=== PATIENT | male | born 1990 | race Two or more races ===

== ENCOUNTER 2024-06-22 07:57 | Emergency (ER) | payer BC ==
[~2024-06-22] VITALS: Ht 172.7 cm; Wt 77.1 kg
[2024-06-22 08:00] VITALS: BP 106/79; TEMP 98.3; O2SAT 98
[2024-06-22] MEDS ORDERED: KETOROLAC TROMETHAMINE INJ 30 MG/ML VIAL ONE (08:34)
[2024-06-22] MEDS: KETOROLAC TROMETHAMINE INJ 60 MG/2 ML VIAL IM ONE (08:37)
== END 2024-06-22 11:07 | disposition home or self-care (01) ==
LOC: ER 08:04
DX: M25.571 Pain in right ankle and joints of right foot (principal); J45.909 Unspecified asthma, uncomplicated; Z60.2 Problems related to living alone; Z88.0 Allergy status to penicillin; W01.0XXA Fall on same level from slipping, tripping and stumbling without subsequent striking against object, initial encounter; Y93.89 Activity, other specified; Y92.89 Other specified places as the place of occurrence of the external cause; Y99.8 Other external cause status
CPT/HCPCS: 99284; 96372; 73610; 73630; J1885